=== PATIENT | female | born 1955 | race Caucasian/White ===

== ENCOUNTER 2016-08-28 08:14 | Day surgery (SDC) | payer OTHER ==
[~2016-08-28] VITALS: Ht 157.5 cm; Wt 83.9 kg
[~2016-08-28 08:14] MED LIST: ASPI-664 PO; SYN112 PO
[2016-08-28 09:10] VITALS: Ht 157.5 cm; Wt 83.9 kg
[2016-08-28 09:24] VITALS: BP 119/79; PULSE 80; RESP 22
[2016-08-28 10:24] VITALS: BP 119/84; PULSE 69; RESP 16
[2016-08-28] MEDS ORDERED: FENTAnyl 50 MCG/ML VIAL ONE (10:28)
[2016-08-28] MEDS ORDERED: MIDAZOLAM 1 MG/ML 2 ML INJ ONE (10:28)
[2016-08-28 11:01] VITALS: BP 104/63; PULSE 73; RESP 16
--- NOTE | 2016-08-28 14:33 | GILP ---
DATE OF PROCEDURE: 08/28/2016 NAME OF PROCEDURES: Colonoscopy and biopsy. SURGEON: Adelso Kwon MD PREOPERATIVE DIAGNOSIS: Screening colonoscopy. POSTOPERATIVE DIAGNOSES 1. Colonoscopy all the way to the cecum. 2. Small sigmoid colon polyp was removed using the biopsy forceps. 3. Diverticulosis of the colon. 4. Internal hemorrhoids. INDICATION FOR THE PROCEDURE: Ms. Deana Pruitt is a 61-year-old female patient who was sched uled for screening colonoscopy. The procedure and possible complications are well explained to the patient. The patient understood and consented to the procedure. DESCRIPTION OF PROCEDURE: Under the influence of fentanyl and Versed, the colonoscope was carefully introduced in the rectum and under direct vision, it was advanced all the way to the cecum. FINDINGS: The patient had a small sigmoid colon polyp and it was removed using the biopsy forceps. She was noted to have diverticulosis of the colon and internal hemorrhoids. She tolerated the procedure very well and there was no complication from the procedure. At the end of the procedures, she was awake with stable vital signs and she was discharged home to the care of her family. IMPRESSION: 1. Colonoscopy all the way to the cecum. 2. Small sigmoid colon polyp was removed using the biopsy forceps. 3. Diverticulosis of the colon. 4. Internal hemorrhoids. PLAN: 1. High fiber diet. 2. Next screening colonoscopy in 10 years. Dictated By: ADELSO GRIFFIN/ELIEL Conf#: [id number] DID#: [id number] CC: ADELSO KWON MD;*EndCC*
== END 2016-08-28 16:33 | disposition home or self-care (01) ==
LOC: GIL 08:14
PROVIDERS: ATTEND Internal Medicine Gastroenterology
DX: Z12.11 Encounter for screening for malignant neoplasm of colon (principal); D12.5 Benign neoplasm of sigmoid colon; K57.90 Diverticulosis of intestine, part unspecified, without perforation or abscess without bleeding; K64.8 Other hemorrhoids
CPT/HCPCS: 45380; 88305; J2250; J3010; Z7610